=== PATIENT | male | born 1965 | race Caucasian/White ===

== ENCOUNTER 2016-09-26 12:50 | Observation (INO) | payer OTHER ==
[~2016-09-26] VITALS: Ht 182.9 cm; Wt 112.1 kg
[~2016-09-26 12:50] MED LIST: ADVAIR 500/501 DISK IH; ALBUTEROL17 G1 IH; ALBUTEROL17 GM IH; AMOXICILLIN500 M1 PO; Advair HFA 230/21 IH; Advil,Nuprin,Motrin PO; CELEXA20 MG PO; CELEXA40 MG PO; DALIRESP500 MCG PO; DELTASONE10 MG PO; DELTASONE20 MG PO; HUMIBID LA,MUC600 MG PO; LIDODERM 5% P1 PATCH TD; Levaquin PO; OxyCODONE PO; OxyCONTIN PO; PREDNISONE10 M1; PREDNISONE10 MG PO; PREDNISONE20 MG PO; PROAIR HFA8.5 GM; PROAIR HFA8.5 GM IH; PROTONIX40 MG PO; PROVENTIL,2.5 MG/0.5 IH; Proventil,Ventolin H IH; Remove Lidoderm Patc TD; SIMPLY SLEEP PO; SINGULAIR10 MG PO; SPIRIVA1 INHALATI IH; STERAPRED 5 MG U5 MG PO; Singulair PO; THERAGRAN1 TABLET PO; Tessalon Perle PO; Tylenol Regular Stre PO; VALIUM10 MG; VALIUM10 MG PO; VALIUM5 MG PO; VENTOLIN HFA18 GM IH; ZITHROMAX250 MG PO; ZYRTEC10 M3 PO; Zithromax PO; predniSONE PO
[2016-09-26 14:13] LABS: HEMATOCRIT 41.6 % (38.0-50.0); MCHC 34.1 G/DL (30.0-36.0); MCV 87.8 FL (86-99); MEAN PLAT.VOLUME 9.9 uM^3 (9.0-12.4); PLATELET COUNT 281 K/uL (156-360); RBC DIS.WIDTH-CV 13.5 % (11.8-14.6); RBC DIS.WIDTH-SD 42.2 % (39-53); RED BLOOD COUNT 4.74 M/uL (4.00-5.50); WHITE BLOOD COUNT 18.4 K/uL (4.1-10.2)
[2016-09-26 14:16] LABS: EOSINOPHIL (%) 0 % (0-5); IMMATURE GRANULOCYTE (%) 0.2 % (0.0-0.7); IMMATURE GRANULOCYTE COUNT 0.4 K/uL; MONOCYTE (%) 11.1 % (3-12); NEUTROPHIL (%) 66.9 % (45-76); NEUTROPHIL COUNT 12.3 K/uL (1.8-6.4)
[2016-09-26 14:24] LABS: CHLORIDE 105 mEq/L (99-109); SODIUM 138 mEq/L (136-147)
[2016-09-26 14:26] LABS: GLUCOSE 107 mg/dL (70-99)
[2016-09-26 14:27] LABS: ANION GAP 11 MEQ/L (2-14)
[2016-09-26 14:28] LABS: TOTAL BILIRUBIN 0.9 mg/dL (0.0-1.0)
[2016-09-26 14:29] LABS: ALKALINE PHOSPHATASE 58 IU/L (3-129); INTER. NORMALIZED RATIO 1.1; PROTHROMBIN TIME 11.2 (9.2-11.2)
[2016-09-26 14:30] LABS: GFR ESTIMATE (CALCULATED) > 59 mL/min/
[2016-09-26 14:31] LABS: UREA NITROGEN (BUN) 11 mg/dL (9-23)
[2016-09-26 14:35] LABS: BASE EXCESS -0.7 mEq/L (-3 to +3); BICARBONATE 21.3 mEq/L (22-26); CARBOXY HGB 1.7 % (0-5); HEMOGLOBIN 14.9 (12.5-16.6); O2 SATURATION (CALCULATED) 93.5 % (95-99); PCO2 28 mm Hg (35-45); PO2 68 mm Hg (80-100); pH 7.49 (7.35-7.45)
[2016-09-26 14:35] LABS: INFLUENZA A VIRAL ANTIGEN NEGATIVE; INFLUENZA B VIRAL ANTIGEN NEGATIVE
[2016-09-26 14:36] LABS: COMMENTS - BLOOD GASES A+C+; DEVICE RA; SITE RR; TOTAL RESP RATE 16 resp/min
[2016-09-26 14:36] LABS: TROP-I INTERPRETATION NEGATIVE; TROPONIN-I < 0.01 ng/mL (0.0-0.30)
[2016-09-26] MEDS ORDERED: OMEPRAZOLE20 MG PO (17:27)
[2016-09-26] MEDS ORDERED: SYMBICORT60 INHALAT IH (17:27)
[2016-09-26] MEDS ORDERED: DUONEB 2.5-0.5 M3 ML AEROSOL (17:28)
[2016-09-26] MEDS ORDERED: SERTRALINE HCL50 MG PO (17:28)
[2016-09-26] MEDS ORDERED: GABAPENTIN300 MG PO (17:28)
[2016-09-26] MEDS ORDERED: OXYCODONE-APAP1 EACH PO (17:29)
[2016-09-26 20:00] VITALS: BP 145/95
[2016-09-27] VITALS: BP 116/72
[2016-09-27 03:04] VITALS: BP 109/70
[2016-09-27 07:30] VITALS: BP 129/91
[2016-09-27 09:13] LABS: HEMATOCRIT 41.3 % (38.0-50.0); MCH 30.9 PG (29.0-34.0); MCHC 34.9 G/DL (30.0-36.0); MCV 88.6 FL (86-99); MEAN PLAT.VOLUME 10.8 uM^3 (9.0-12.4); PLATELET COUNT 287 K/uL (156-360); RBC DIS.WIDTH-CV 13.3 % (11.8-14.6); RBC DIS.WIDTH-SD 43.2 % (39-53); RED BLOOD COUNT 4.66 M/uL (4.00-5.50)
[2016-09-27 12:19] VITALS: BP 139/89
[2016-09-27] MEDS ORDERED: PREDNISONE10 MG PO (13:32)
[2016-09-27] MEDS ORDERED: LEVAQUIN750 MG PO (14:03)
[2016-09-27 14:31] VITALS: BP 136/60
== END 2016-09-27 15:46 | disposition home or self-care (01) ==
LOC: EME 12:50 → EDOF 18:13 → 5WEST 18:13
PROVIDERS: Emergency Medicine; Nurse Practitioner Adult Health; Physician Assistant
DX: J44.1 Chronic obstructive pulmonary disease with (acute) exacerbation (principal); F41.9 Anxiety disorder, unspecified; Z87.891 Personal history of nicotine dependence; Z77.110 Contact with and (suspected) exposure to air pollution; D72.829 Elevated white blood cell count, unspecified; R50.9 Fever, unspecified; F10.10 Alcohol abuse, uncomplicated; Z82.5 Family history of asthma and other chronic lower respiratory diseases; Z88.1 Allergy status to other antibiotic agents; Z88.8 Allergy status to other drugs, medicaments and biological substances
CPT/HCPCS: 36600; 71020; 80053; 82803; 83880; 84484; 85025; 85027; 85610; 87502; 93005; 94640; 94640 76; 99202; 99281; 99285; G0378; J0696; J1650; J2930; J7050; J7512

== ENCOUNTER 2016-12-04 22:25 | Emergency (ER) | payer OTHER ==
[~2016-12-04] VITALS: Ht 185.4 cm; Wt 112.8 kg
[~2016-12-04 22:25] MED LIST changes: +DUONEB 2.5-0.5 M3 ML AEROSOL; +GABAPENTIN300 MG PO; +LEVAQUIN750 MG PO; +OMEPRAZOLE20 MG PO; +OXYCODONE-APAP1 EACH PO; +SERTRALINE HCL50 MG PO; +SYMBICORT60 INHALAT IH
[2016-12-04 23:33] VITALS: BP 140/95
== END 2016-12-04 23:33 | disposition home or self-care (01) ==
LOC: EME 22:25
DX: S61.211A Laceration without foreign body of left index finger without damage to nail, initial encounter (principal); W27.0XXA Contact with workbench tool, initial encounter; Y93.89 Activity, other specified; Z23 Encounter for immunization
CPT/HCPCS: 99281; 99284; S0020

== ENCOUNTER → 2018-03-24 | Outpatient (CLI) | payer BC, MEDICARE | END | disposition home or self-care (01) | LOC: CDC 11:19 | DX: Z01.810 Encounter for preprocedural cardiovascular examination (principal); K42.9 Umbilical hernia without obstruction or gangrene | CPT/HCPCS: 93000 ==

== ENCOUNTER 2018-03-31 07:40 | Day surgery (SDC) | payer BC, OTHER ==
[~2018-03-31] VITALS: Ht 182.9 cm; Wt 116.1 kg
[~2018-03-31 07:40] MED LIST changes: +COZAAR50 MG PO
[2018-03-31 08:52] VITALS: BP 156/94
[2018-03-31] MEDS ORDERED: NORCO 5/3251 TABLET PO (12:42)
[2018-03-31 13:10] VITALS: BP 134/86
[2018-03-31 14:12] VITALS: BP 123/89
== END 2018-03-31 14:14 | disposition home or self-care (01) ==
LOC: SDC
PROC: 0WUF4JZ Supplement Abdominal Wall with Synthetic Substitute, Percutaneous Endoscopic Approach (ICD-10-PCS; principal; 2018-03-31)
DX: K42.0 Umbilical hernia with obstruction, without gangrene (principal); E66.9 Obesity, unspecified; Z68.36 Body mass index [BMI] 36.0-36.9, adult; J44.9 Chronic obstructive pulmonary disease, unspecified; K20.9 Esophagitis, unspecified; F43.21 Adjustment disorder with depressed mood; Z82.5 Family history of asthma and other chronic lower respiratory diseases; Z87.891 Personal history of nicotine dependence
CPT/HCPCS: C1781; J0330; J0690; J1100; J1885; J2001; J2405; J2710; J3010; J3475; J7643